=== PATIENT | male | born 1945 | race Caucasian/White ===

== ENCOUNTER 2019-06-13 19:23 | Emergency (ER) | payer MEDICARE, BC ==
[~2019-06-13] VITALS: Ht 185.4 cm; Wt 97.5 kg
--- NOTE | 2019-06-13 19:40 | NUR ---
ED Nurse Note: Walk-in patient with complaints of fall after trippin on the street about an hour ago. Patient reports pain 4/10 on pain aching. VSS, NAD, ERMD at bedside. Will continue to monitor.
[2019-06-13 19:45] VITALS: BP 119/70
--- NOTE | 2019-06-13 19:54 | Emergency Room Report ---
History of Present Illness General Chief Complaint: Laceration Source: Patient Present Illness HPI Disclaimer: Please note that this report is being documented using DRAGON technology. This can lead to erroneous entry secondary to incorrect interpretation by the dictating instrument. HPI: 73-year-old male with history of hypertension hyperlipidemia presents for evaluation of a scalp wound after a mechanical fall. The patient was ambulating down the street when he had a mechanical fall from standing falling forward and hitting his left forehead against the pavement. There was no loss of consciousness. He remembers the entire event. Denies any headache, neck or back pain, changes in his vision, numbness, tingling or other injury sustained. He appears to have suffered a large abrasion. He was evaluated by EMS on site initially refused transfer. Once home, he looked at the wound and decided to get medical evaluation. He does take aspirin but no other antiplatelets or other anticoagulants. Only complaining of mild throbbing over the skin itself but denies any significant symptoms otherwise. PMH: Hypertension, hyperlipidemia PSH: Denies Allergies: None Social Hx: Denies drug, tobacco or alcohol use Allergies: Coded Allergies: No Known Allergies (Unverified , 06/13/19) Nursing Documentation-PMH Hx Hypertension: Yes Review of Systems All Other Systems: negative except mentioned in HPI Physical Exam Vital Signs Date Time Temp Pulse Resp B/P (MAP) Pulse Ox O2 Delivery O2 Flow Rate FiO2 06/13/19 19:31 97.9 72 16 119/70 (86) 94 Room Air General: Awake and alert, no acute distress HEENT: Normocephalic. There is a 5 x 5 cm abrasion over the left forehead. Oozing. No laceration. No hematomas. No tenderness or soft tissue swelling over the facial bones. EOMI. PERRLA. No septal hematoma. No oral lacerations. Dentition is intact. No malocclusion Neck: Supple, trachea midline. Arrives without cervical collar Chest Wall: No tenderness, no deformity, no crepitus CV: RRR. S1 and S2 normal. No murmur appreciated Resp: Normal work of breathing. No cough, wheezing or crackles appreciated Abd: Soft, nontender, nondistended Skin: Forehead abrasion as described above MSK: Normal tone and bulk. No obvious deformity. Moving all extremities. Ambulating without difficulty. Neuro: Awake and alert. Mentating appropriately. Sensation is intact to light touch over the dermatomes of the upper and lower extremities Spine: There is no tenderness, step-off or deformity in the cervical spine. Medical Decision Making ER Course 73-year-old male presents for evaluation of an abrasion of the left forehead after mechanical fall from standing. He takes aspirin but has no significant complaints at this time aside from mild pain. Unknown last tetanus. Will send for CT scan to rule out intracranial bleed, clean the wound, update tetanus and give Tylenol for pain. He does not require laceration repair. Will apply bacitracin. CT/MRI/US Diagnostic Results CT/MRI/US Diagnostic Results : Impression Preliminary Findings Only See Final Report For Complete Findings CT HEAD Without Contrast: Negative for mass, mass-effect or intracranial hemorrhage. Negative for skull fracture, mastoid effusions or air fluid levels in the paranasal sinuses. Radiologist: Dalton Santana MD Study ready at 20:12 and initial results transmitted at 20:13 Reevaluation Time: 20:14 Last Vital Signs Date Time Temp Pulse Resp B/P (MAP) Pulse Ox O2 Delivery O2 Flow Rate FiO2 06/13/19 19:31 97.9 72 16 119/70 (86) 94 Room Air Reevaluation Impression CT head unremarkable for bleed. No evidence of skull fracture. Wound was cleaned, bacitracin applied, tetanus updated and bandage. Patient will follow- up with his PMD. Discussed reasons to return to the emergency department. He understands and agrees with this treatment plan. Disposition: HOME, SELF-CARE Condition: Stable Scripts Bacitracin (Bacitracin) 28.4 Gm Oint...g. 1 APPLIC TOPIC THREE TIMES A DAY for 5 Days, #28.4 GM Prov: Yusuf Reyes MD 06/13/19 Yusuf Reyes MD Jun 13, 2019 19:54
--- NOTE | 2019-06-13 19:57 | NUR ---
ED Nurse Note: Pt going to CT accompanied by iv technician on a wheelchair.
[2019-06-13] MEDS ORDERED: Bacitracin Oint UD TOPIC ONE (20:00)
[2019-06-13] MEDS ORDERED: Acetaminophen 500mg (ES) tab ORAL ONE (20:00)
[2019-06-13] MEDS ORDERED: Tetanus/Diptheria/Pertussis IM ONE (20:00)
--- NOTE | 2019-06-13 20:05 | NUR ---
ED Nurse Note: Pt back from CT. VSS, NAD, back on monitor. Will continue to monitor.
--- NOTE | 2019-06-13 20:14 | Diagnostic Imaging Report ---
Indications: Scalp injury after mechanical fall, hitting left forehead against placement Technique: Spiral acquisitions obtained through the brain. Angled axial and coronal 5 x 5 mm slices were reconstructed. Total dose length product 1394 mGycm. CTDI vol(s) 62 mGy. Dose reduction achieved using automated exposure control Comparison: None. Findings: No acute intracranial hemorrhage or edema. No mass effect nor midline shift. There is mild age-related enlargement of the ventricles and extra-axial CSF spaces. There is minimal periventricular deep white matter low-attenuation, consistent with chronic microvascular ischemic change. There is evidence of prior bilateral cataract surgery. There is minimal debris within the right sphenoid sinus. The calvarium is intact. The mastoids are clear. Impression: Mild chronic age-related changes Negative for acute intracranial bleed or mass effect Minimal sphenoid sinus disease The CT scanner at [facility] is accredited by the [employer] and the scans are performed using protocols designed to limit radiation exposure to as low as reasonably achievable to attain images of sufficient resolution adequate for diagnostic evaluation.
[2019-06-13] MEDS ORDERED: BACITRACIN15 GM TOPIC (20:23)
--- NOTE | 2019-06-13 20:30 | NUR ---
ED Nurse Note: Cleaned and dressed patient wound and applied medication per ERMD order. Patient tolerated treatment well. Will continue to monitor.
--- NOTE | 2019-06-13 20:33 | NUR ---
ER DISCHARGE NOTE: Patient is cleared to be discharged per ERMD, pt is aox4, on room air, with stable vital signs. pt was given dc and prescription instructions, pt was able to verbalize understanding, pt id band removed without complications. pt is able to ambulate with steady gait. pt took all belongings.
[2019-06-13 20:39] VITALS: BP 119/70
== END 2019-06-13 20:30 | disposition home or self-care (01) ==
LOC: EMR 20:17
DX: S00.81XA Abrasion of other part of head, initial encounter (principal); W19.XXXA Unspecified fall, initial encounter; Y92.9 Unspecified place or not applicable; I10 Essential (primary) hypertension; E78.5 Hyperlipidemia, unspecified; Z23 Encounter for immunization
CPT/HCPCS: 70450; 90471; 90715; 99284

== ENCOUNTER 2019-10-28 20:22 | Emergency (ER) | payer MEDICARE, BC ==
[~2019-10-28] VITALS: Ht 188 cm; Wt 104.3 kg
[~2019-10-28 20:22] MED LIST: BACITRACIN15 GM TOPIC
[2019-10-28 20:45] VITALS: BP 143/76
--- NOTE | 2019-10-28 20:45 | NUR ---
ED Nurse Note: Pt ambulted into ed from home CO right flank pain that started today d/t previous hx of kidney stones. Pt states that he noticed pain and dark urine this morning and began to hydrate in order to combat symptoms but was unsuccessful. Pt VSS no ss of distress noted. Awaiting ERMD at bedside
--- NOTE | 2019-10-28 21:00 | NUR ---
ED Nurse Note: Pt ambulated to restroom to attempt to provide urine sample. Pt was unsuccessful. ERMD aware.
--- NOTE | 2019-10-28 21:10 | NUR ---
ED Nurse Note: ERMD at bedside
--- NOTE | 2019-10-28 21:22 | Emergency Room Report ---
History of Present Illness General Chief Complaint: Back Pain-No Injury Source: Patient Present Illness HPI Disclaimer: Please note that this report is being documented using DRAGON technology. This can lead to erroneous entry secondary to incorrect interpretation by the dictating instrument. HPI: 74-year-old male presents for evaluation of right-sided flank pain. He has a history of kidney stones that have all passed spontaneously. No history of instrumentation or stenting. Reports lower quadrant abdominal tenderness earlier today that shifted to the right flank. Noted dark and painful urination. Denied nausea or vomiting. States it is consistent with his prior kidney stones. Denies fever chills or cough or shortness of breath. Reports normal stools. PMH: Hypertension, hyperlipidemia, recurrent kidney stones PSH: Denies Allergies: Denies Social Hx: Denies Allergies: Coded Allergies: No Known Allergies (Unverified , 06/13/19) COVID-19 Screening Contact w/high risk pt: No Recent Travel to affected area: No Experienced COVID-19 symptoms?: No Nursing Documentation-PMH Hx Hypertension: Yes Review of Systems All Other Systems: negative except mentioned in HPI Physical Exam Vital Signs Date Time Temp Pulse Resp B/P (MAP) Pulse Ox O2 Delivery O2 Flow Rate FiO2 10/28/19 20:32 98.1 67 18 153/81 (105) 97 Room Air General: Awake and alert, no acute distress HEENT: NC/AT. EOMI. Cardiovascular: RRR. S1 and S2 normal. No murmur appreciated Resp: Normal work of breathing. No cough, wheezing or crackles appreciated Abdomen: Abdomen is soft, nondistended. Nontender Skin: Intact. No abrasions, laceration or rash over the exposed skin MSK: Normal tone and bulk. Moving all extremities. No obvious deformity. Neuro: Awake and alert. Mentating appropriately. Back/Spine: Right-sided CVA tenderness Medical Decision Making Diagnostic Impression: Primary Impression: Nephrolithiasis Additional Impressions: Lung nodule seen on imaging study UTI (urinary tract infection) ER Course 74-year-old male presents for evaluation of lower abdominal and right-sided flank pain. Differential includes was not limited to nephrolithiasis, pyelonephritis, UTI, constipation, pancreatitis, cholecystitis to name a few. Labs and CT were ordered by the previous provider. Consistent with kidney stone that appears to have already passed and is now located in the bladder. There is mild prominence of the collecting system and some perinephric stranding on the right worse than left. Urinalysis consistent with acute urinary tract infection. The patient be started on ciprofloxacin. CT also found there are nonspecific subpleural soft tissue densities in the lung bases. The patient states he has known about these for several years and has close follow-up with his PMD with a recent CT scan performed last year which was unchanged from the previous 2 years before that. A copy of his imaging results have been included discharge paperwork to take along to his PMD. Patient is feeling well would like to be discharged home. Believe he is stable for outpatient follow-up. Will prescribe pain medication and the ciprofloxacin and will follow-up with his PMD. Discussed reasons to return to the emergency department. He understands and agrees with this treatment plan. Laboratory Tests Test 10/28/19 21:08 10/28/19 23:30 White Blood Count 11.6 K/UL (4.8-10.8) H Red Blood Count 5.23 M/UL (4.70-6.10) Hemoglobin 16.7 G/DL (14.2-18.0) Hematocrit 50.7 % (42.0-52.0) Mean Corpuscular Volume 97 FL (80-99) Mean Corpuscular Hemoglobin 31.8 PG (27.0-31.0) H Mean Corpuscular Hemoglobin Concent 32.9 G/DL (32.0-36.0) Red Cell Distribution Width 12.8 % (11.6-14.8) Platelet Count 200 K/UL (150-450) Mean Platelet Volume 7.2 FL (6.5-10.1) Neutrophils (%) (Auto) % (45.0-75.0) Lymphocytes (%) (Auto) % (20.0-45.0) Monocytes (%) (Auto) % (1.0-10.0) Eosinophils (%) (Auto) % (0.0-3.0) Basophils (%) (Auto) % (0.0-2.0) Differential Total Cells Counted 100 Neutrophils % (Manual) 88 % (45-75) H Lymphocytes % (Manual) 8 % (20-45) L Monocytes % (Manual) 3 % (1-10) Eosinophils % (Manual) 1 % (0-3) Basophils % (Manual) 0 % (0-2) Band Neutrophils 0 % (0-8) Platelet Estimate Adequate Platelet Morphology Normal Red Blood Cell Morphology Normal Sodium Level 144 MMOL/L (136-145) Potassium Level 3.8 MMOL/L (3.5-5.1) Chloride Level 109 MMOL/L (98-107) H Carbon Dioxide Level 22 MMOL/L (21-32) Anion Gap 13 mmol/L (5-15) Blood Urea Nitrogen 14 mg/dL (7-18) Creatinine 1.1 MG/DL (0.55-1.30) Estimated Glomerular Filtration Rate > 60 mL/min (>60) Glucose Level 136 MG/DL (74-106) H Calcium Level 9.3 MG/DL (8.5-10.1) Magnesium Level 2.1 MG/DL (1.8-2.4) Total Bilirubin 0.8 MG/DL (0.2-1.0) Aspartate Amino Transferase (AST) 18 U/L (15-37) Alanine Aminotransferase (ALT) 29 U/L (12-78) Alkaline Phosphatase 56 U/L (46-116) Total Protein 7.6 G/DL (6.4-8.2) Albumin 4.0 G/DL (3.4-5.0) Globulin 3.6 g/dL Albumin/Globulin Ratio 1.1 (1.0-2.7) Lipase 136 U/L (73-393) Urine Color Yellow Urine Appearance Cloudy Urine pH 5 (4.5-8.0) Urine Specific Hope 1.020 (1.005-1.035) Urine Protein 2+ (NEGATIVE) H Urine Glucose (UA) Negative (NEGATIVE) Urine Ketones 2+ (NEGATIVE) H Urine Blood 5+ (NEGATIVE) H Urine Nitrite Negative (NEGATIVE) Urine Bilirubin Negative (NEGATIVE) Urine Urobilinogen Normal MG/DL (0.0-1.0) Urine Leukocyte Esterase 2+ (NEGATIVE) H Urine RBC 60-80 /HPF (0 - 0) H Urine WBC 5-10 /HPF (0 - 0) H Urine Squamous Epithelial Cells Occasional /LPF Urine Amorphous Sediment Moderate /LPF (NONE) H Urine Bacteria Few /HPF (NONE) Urine Mucus Many /LPF (NONE/OCC) H CT/MRI/US Diagnostic Results CT/MRI/US Diagnostic Results : Impression Final Report EXAM: CT Abdomen and Pelvis Without Intravenous Contrast CLINICAL HISTORY: ABD PAIN TECHNIQUE: Axial computed tomography images of the abdomen and pelvis without intravenous contrast. CTDI is 12.8 mGy and DLP is 755.4 mGy-cm. One or more of the following dose reduction techniques were used: automated exposure control, adjustment of the mA and/or kV according to patient size, use of iterative reconstruction technique. Coronal and sagittal reformatted images were created and reviewed. COMPARISON: No relevant prior studies available. FINDINGS: Lung bases: There are at least 3 small nonspecific subpleural soft tissue density nodules at the lung bases. The largest is in the left lower lobe and measures 7 mm. Fleischner Society Guidelines for low-risk patients, recommend follow-up chest CT at 3-6 months. If unchanged consider an additional follow-up CT at 18-24 months. For high-risk patients (smoking history or other known risk factors) initial follow-up chest CT at 3-6 months and if unchanged, 18-24 months. ABDOMEN: Liver: The liver is grossly unremarkable for a noncontrast CT. Gallbladder and bile ducts: The gallbladder is grossly unremarkable for a noncontrast CT. No calcified stones. No ductal dilation. Pancreas: The pancreas is grossly unremarkable for a noncontrast CT. No ductal dilation. Spleen: The spleen is grossly unremarkable for a noncontrast CT. Adrenals: The adrenals are grossly unremarkable for a noncontrast CT. Kidneys and ureters: Mild prominence of the right renal collecting system with bilateral perinephric stranding, right worse than left. No definite evidence for ureteral stone. A 4 mm calcification is suspected in the dependent aspect of the bladder which may be related to a recently passed right ureteral stone. An infectious process such as acute pyelonephritis cannot be excluded. Correlation with clinical and laboratory findings is recommended. Very small punctate calcification suspected in the right kidney. 3 cm low-density lesion in the right kidney which is likely related to a cyst. Stomach and bowel: Evaluation of the rectosigmoid colon is limited secondary to poor distention. No definite evidence for bowel related inflammatory changes. No evidence for significant bowel loop dilation to suggest an obstructive process. PELVIS: Appendix: The appendix is questionably visualized in the right lower quadrant and is unremarkable. Bladder: See above. Reproductive: Enlargement of the prostate gland. ABDOMEN and PELVIS: Intraperitoneal space: No free intraperitoneal fluid or free intraperitoneal gas. Bones/joints: Degenerative changes of the thoracolumbar spine. Mild thoracolumbar levoscoliosis. No acute fracture. No dislocation. Soft tissues: Small umbilical hernia containing fat only. Vasculature: Vascular atherosclerotic calcifications. No abdominal aortic aneurysm. Lymph nodes: Mild infiltration of the mesenteric fat with small adjacent lymph nodes. This may be related to mesenteric panniculitis. IMPRESSION: 1. Mild prominence of the right renal collecting system with bilateral perinephric stranding, right worse than left. No definite evidence for ureteral stone. A 4 mm calcification is suspected in the dependent aspect of the bladder which may be related to a recently passed right ureteral stone. An infectious process such as acute pyelonephritis cannot be excluded. Correlation with clinical and laboratory findings is recommended. 2. Very small punctate calcification suspected in the right kidney. 3. There are at least 3 small nonspecific subpleural soft tissue density nodules at the lung bases. The largest is in the left lower lobe and measures 7 mm. Fleischner Society Guidelines for low-risk patients, recommend follow-up chest CT at 3-6 months. If unchanged consider an additional follow-up CT at 18- 24 months. For high-risk patients (smoking history or other known risk factors) initial follow-up chest CT at 3-6 months and if unchanged, 18-24 months. 4. Mild infiltration of the mesenteric fat with small adjacent lymph nodes. This may be related to mesenteric panniculitis. Radiologist: Rony Hogue M.D. Electronically Signed: 10/28/19 22:55 Study ready at 22:31 and initial results transmitted at 22:55 Last Vital Signs Date Time Temp Pulse Resp B/P (MAP) Pulse Ox O2 Delivery O2 Flow Rate FiO2 10/28/19 20:32 98.1 67 18 153/81 (105) 97 Room Air Disposition: HOME, SELF-CARE Condition: Improved Scripts Hydrocodone Bit/Acetaminophen 5-325* (NORCO 5-325 TABLET*) 1 Each Tablet 1 TAB ORAL Q6H PRN for FOR PAIN, #10 TAB 0 Refills Prov: Yusuf Reyes MD 10/28/19 Ciprofloxacin Hcl* (CIPROFLOXACIN HCL*) 500 Mg Tablet 500 MG ORAL Q12H for 7 Days, #14 TAB 0 Refills Prov: Yusuf Reyes MD 10/28/19 Yusuf Reyes MD Oct 28, 2019 21:22
--- NOTE | 2019-10-28 21:25 | NUR ---
ED Nurse Note: All blood work sent to lab, all medications administered. pt tolerated well no ss of distress noted.
[2019-10-28 21:26] LABS: HEMATOCRIT 50.7 % (42.0-52.0); HEMOGLOBIN 16.7 G/DL (14.2-18.0); MEAN CORPUSCULAR VOLUME 97 FL (80-99); PLATELET COUNT 200 K/UL (150-450); RED BLOOD COUNT 5.23 M/UL (4.70-6.10); RED CELL DISTRIBUTION WIDTH 12.8 % (11.6-14.8); WHITE BLOOD COUNT 11.6 K/UL (4.8-10.8)
[2019-10-28] MEDS ORDERED: Morphine Sulfate 4mg/ml Inj (IV USE ONLY) IVP ONE (21:30)
[2019-10-28 21:53] LABS: ANION GAP 13 mmol/L (5-15); BLOOD UREA NITROGEN 14 mg/dL (7-18); CALCIUM 9.3 MG/DL (8.5-10.1); CARBON DIOXIDE 22 MMOL/L (21-32); CHLORIDE 109 MMOL/L (98-107); CREATININE 1.1 MG/DL (0.55-1.30); POTASSIUM 3.8 MMOL/L (3.5-5.1); SODIUM 144 MMOL/L (136-145)
[2019-10-28 21:57] LABS: ALANINE AMINOTRANSFERASE 29 U/L (12-78); ALBUMIN/GLOBULIN RATIO 1.1 (1.0-2.7); ALKALINE PHOSPHATASE 56 U/L (46-116); ASPARTATE AMINO TRANSFERASE 18 U/L (15-37); BILIRUBIN,TOTAL 0.8 MG/DL (0.2-1.0)
--- NOTE | 2019-10-28 22:25 | NUR ---
ED Nurse Note: Pt taken to CT in stable condition, no ss of distress noted. VSS.
--- NOTE | 2019-10-28 22:35 | NUR ---
ED Nurse Note: PT returned from CT in stable condition, VSS no ss of distress noted.
--- NOTE | 2019-10-28 22:40 | NUR ---
ED Nurse Note: Pt still unable to provide urine sample. ERMD aware. will continue to monitor
[2019-10-28 22:46] VITALS: BP 143/74
--- NOTE | 2019-10-28 22:56 | Diagnostic Imaging Report ---
EXAM: CT Abdomen and Pelvis Without Intravenous Contrast CLINICAL HISTORY: ABD PAIN TECHNIQUE: Axial computed tomography images of the abdomen and pelvis without intravenous contrast. CTDI is 12.8 mGy and DLP is 755.4 mGy-cm. One or more of the following dose reduction techniques were used: automated exposure control, adjustment of the mA and/or kV according to patient size, use of iterative reconstruction technique. Coronal and sagittal reformatted images were created and reviewed. COMPARISON: No relevant prior studies available. FINDINGS: Lung bases: There are at least 3 small nonspecific subpleural soft tissue density nodules at the lung bases. The largest is in the left lower lobe and measures 7 mm. Fleischner Society Guidelines for low-risk patients, recommend follow-up chest CT at 3-6 months. If unchanged consider an additional follow-up CT at 18-24 months. For high-risk patients (smoking history or other known risk factors) initial follow-up chest CT at 3-6 months and if unchanged, 18-24 months. ABDOMEN: Liver: The liver is grossly unremarkable for a noncontrast CT. Gallbladder and bile ducts: The gallbladder is grossly unremarkable for a noncontrast CT. No calcified stones. No ductal dilation. Pancreas: The pancreas is grossly unremarkable for a noncontrast CT. No ductal dilation. Spleen: The spleen is grossly unremarkable for a noncontrast CT. Adrenals: The adrenals are grossly unremarkable for a noncontrast CT. Kidneys and ureters: Mild prominence of the right renal collecting system with bilateral perinephric stranding, right worse than left. No definite evidence for ureteral stone. A 4 mm calcification is suspected in the dependent aspect of the bladder which may be related to a recently passed right ureteral stone. An infectious process such as acute pyelonephritis cannot be excluded. Correlation with clinical and laboratory findings is recommended. Very small punctate calcification suspected in the right kidney. 3 cm low-density lesion in the right kidney which is likely related to a cyst. Stomach and bowel: Evaluation of the rectosigmoid colon is limited secondary to poor distention. No definite evidence for bowel related inflammatory changes. No evidence for significant bowel loop dilation to suggest an obstructive process. PELVIS: Appendix: The appendix is questionably visualized in the right lower quadrant and is unremarkable. Bladder: See above. Reproductive: Enlargement of the prostate gland. ABDOMEN and PELVIS: Intraperitoneal space: No free intraperitoneal fluid or free intraperitoneal gas. Bones/joints: Degenerative changes of the thoracolumbar spine. Mild thoracolumbar levoscoliosis. No acute fracture. No dislocation. Soft tissues: Small umbilical hernia containing fat only. Vasculature: Vascular atherosclerotic calcifications. No abdominal aortic aneurysm. Lymph nodes: Mild infiltration of the mesenteric fat with small adjacent lymph nodes. This may be related to mesenteric panniculitis. IMPRESSION: 1. Mild prominence of the right renal collecting system with bilateral perinephric stranding, right worse than left. No definite evidence for ureteral stone. A 4 mm calcification is suspected in the dependent aspect of the bladder which may be related to a recently passed right ureteral stone. An infectious process such as acute pyelonephritis cannot be excluded. Correlation with clinical and laboratory findings is recommended. 2. Very small punctate calcification suspected in the right kidney. 3. There are at least 3 small nonspecific subpleural soft tissue density nodules at the lung bases. The largest is in the left lower lobe and measures 7 mm. Fleischner Society Guidelines for low-risk patients, recommend follow-up chest CT at 3-6 months. If unchanged consider an additional follow-up CT at 18-24 months. For high-risk patients (smoking history or other known risk factors) initial follow-up chest CT at 3-6 months and if unchanged, 18-24 months. 4. Mild infiltration of the mesenteric fat with small adjacent lymph nodes. This may be related to mesenteric panniculitis.
--- NOTE | 2019-10-28 23:25 | NUR ---
ED Nurse Note: ERMD at bedside
--- NOTE | 2019-10-28 23:28 | NUR ---
ED Nurse Note: Pt ambulated to restroom for 3rd attempt at providing urine sample; ermd aware
[2019-10-28 23:41] LABS: APPEARANCE,URINE CLOUDY; BILIRUBIN, URINE NEGATIVE (NEGATIVE); GLUCOSE, URINE (UA) NEGATIVE (NEGATIVE); KETONES,URINE 2+ (NEGATIVE); LEUKOCYTE ESTERASE ,URINE 2+ (NEGATIVE); NITRITE,URINE NEGATIVE (NEGATIVE); PH,URINE 5 (4.5-8.0); PROTEIN,URINE 2+ (NEGATIVE); UROBILINOGEN,URINE NORMAL MG/DL (0.0-1.0)
[2019-10-28 23:47] LABS: COLOR,URINE YELLOW
[2019-10-28] MEDS ORDERED: CIPROFLOXACIN500 M2 ORAL (23:50)
[2019-10-28] MEDS ORDERED: NORCO 5-325 TA1 EAC1 ORAL (23:50)
[2019-10-29 00:06] VITALS: BP 141/75
--- NOTE | 2019-10-29 00:06 | NUR ---
ER DISCHARGE NOTE: Patient is cleared to be discharged home per ERMD, pt is aox4, on room air, with stable vital signs. pt was given dc and prescription instructions, pt was able to verbalize understanding, pt id band and iv site removed without complications. pt is able to ambulate with steady gait. pt took all belongings.
== END 2019-10-29 00:06 | disposition home or self-care (01) ==
LOC: EMR 21:52
DX: N20.0 Calculus of kidney (principal); R91.1 Solitary pulmonary nodule; N39.0 Urinary tract infection, site not specified; E78.5 Hyperlipidemia, unspecified; I10 Essential (primary) hypertension
CPT/HCPCS: 36415; 74176; 80053; 81003; 83690; 83735; 85007; 85025; 96361; 96374; 99284; J2270